=== PATIENT | female | born 1985 | race Two or more races ===

== ENCOUNTER 2021-04-14 10:22 | Outpatient (CLI) | payer OTHER | END 2021-04-14 10:47 | disposition home or self-care (01) | LOC: RAD 10:22 | PROVIDERS: ATTEND Internal Medicine | DX: I10 Essential (primary) hypertension (principal); E03.8 Other specified hypothyroidism; E66.8 Other obesity; Z01.810 Encounter for preprocedural cardiovascular examination; G62.89 Other specified polyneuropathies ==